=== PATIENT | male | born 1995 | race Caucasian/White ===

== ENCOUNTER 2017-07-09 02:24 | Emergency (ER) | payer SELFPAY ==
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
[2017-07-09 02:46] VITALS: BP 109/85; PULSE 120; TEMP 97.8; BMI 22.4
== END 2017-07-09 04:19 | disposition home or self-care (01) ==
LOC: FER 02:24
DX: F10.920 Alcohol use, unspecified with intoxication, uncomplicated (principal); S00.83XA Contusion of other part of head, initial encounter
CPT/HCPCS: 99281-25